=== PATIENT | male | born 1945 | race Caucasian/White ===

== ENCOUNTER 2017-05-12 15:34 | Emergency (ER) | payer MEDICARE, BC ==
[~2017-05-12] VITALS: Ht 175.3 cm; Wt 102.0 kg
[2017-05-12] MEDS ORDERED: PANT20TA2 PO (16:12)
[2017-05-12] MEDS ORDERED: HTN MEDICATION (16:12)
[2017-05-12 16:19] LABS: RAPID INFLUENZA A Negative (Negative); RAPID INFLUENZA B Negative (Negative)
[2017-05-12] MEDS ORDERED: PLEASE ENTER ALLERGIES MC SCH (16:30)
[2017-05-12] MEDS ORDERED: ALBUTEROL SULFATE 2.5 MG/3 ML NPPB ONE (16:30)
[2017-05-12] MEDS ORDERED: ALBUTEROL SULFATE 2.5 MG/3 ML ONE (17:14)
[2017-05-12 18:21] LABS: BASOPHILS # (AUTO) 0.02 x10^3/uL (0-0.1); BASOPHILS % (AUTO) 0 % (0-1); EOSINOPHILS # (AUTO) 0.18 x10^3/uL (0-0.4); EOSINOPHILS % (AUTO) 3 % (1-7); LYMPHOCYTES # (AUTO) 2.13 x10^3/uL (1-3.4); LYMPHOCYTES % (AUTO) 36 % (22-44); MD NO; MEAN CORPUSCULAR HEMOGLOBIN 28.7 pg (27.5-34.5); MEAN CORPUSCULAR HGB CONC 33.2 g/dL (33.2-36.2); MEAN CORPUSCULAR VOLUME 86.6 fL (81-97); MEAN PLATELET VOLUME 9.1 fL (7.4-10.4); MONOCYTES # (AUTO) 0.44 x10^3/uL (0.2-0.8); MONOCYTES % (AUTO) 8 % (2-9); NEUTROPHILS # (AUTO) 3.12 x10^3/uL (1.8-6.8); NEUTROPHILS % (AUTO) 53 % (42-75); PLATELET COUNT 174 x10^3/uL (130-400); RED BLOOD COUNT 5.19 x10^6/uL (4.38-5.82); RED CELL DISTRIBUTION WIDTH 13.9 % (9.4-14.8)
[2017-05-12 18:24] LABS: ALBUMIN 3.7 g/dL (3.4-5.0); ANION GAP 7 mmol/L (5-15); CALCIUM 8.9 mg/dL (8.5-10.1); CHLORIDE 109 mmol/L (98-107)
[2017-05-12 18:31] LABS: CREATININE 1.46 mg/dL (0.7-1.3); TROPONIN I < 0.015 ng/mL (0.000-0.045)
[2017-05-12 18:57] VITALS: BP 118/67
== END 2017-05-12 19:55 | disposition home or self-care (01) ==
LOC: ED 19:15
DX: J45.31 Mild persistent asthma with (acute) exacerbation (principal); J02.8 Acute pharyngitis due to other specified organisms; I10 Essential (primary) hypertension
CPT/HCPCS: 36415; 71046; 80048; 82040; 84484; 85025; 87400; 93005; 94640; 99285; J7613